=== PATIENT | male | born 1985 ===

== ENCOUNTER 2025-03-16 08:21 | Emergency (ER) | payer SELFPAY ==
[2025-03-16 08:24] VITALS: BP 134/94; PULSE 64; RESP 18; TEMP 36.7; O2SAT 100
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
[2025-03-16 08:53] VITALS: BMI 20.5
== END 2025-03-16 09:10 ==
LOC: SERX 09:03
PROVIDERS: Emergency Provider Emergency Medicine
DX: Z02.89 Encounter for other administrative examinations (principal)
CPT/HCPCS: 99281